=== PATIENT | female | born 1965 | race Hispanic/Latino ===

== ENCOUNTER 2020-10-19 07:05 | Day surgery (SDC) | payer MEDICAID ==
[2020-10-18 10:03] LABS: Hematocrit 40.2 % (30.3-42.9); Mean Corpuscular HGB Conc 35 % (30-34); Mean Corpuscular Volume 89 fl (79-97); Platelet Count 233 K/mm3 (140-440); Red Blood Count 4.51 M/mm3 (3.65-5.03); Red Cell Distribution Width 12.6 % (13.2-15.2)
[2020-10-18 10:27] LABS: Alanine Aminotransferase 32 units/L (7-56); Albumin 4.7 g/dL (3.9-5); Blood Urea Nitrogen 21 mg/dL (7-17); Calcium 10.3 mg/dL (8.4-10.2); Hemolysis Index 12
[2020-10-18 10:37] LABS: BUN/Creatinine Ratio 30
[~2020-10-19 07:05] MED LIST: SODIUM CHLORIDE 0.9% IRR 1,500 ML BOTTLE IR ONE; SODIUM CHLORIDE 0.9% IRRIG SOLN 2000 ML IR ONE
[2020-10-19] MEDS ORDERED: MAGNESIUM OXIDE 400 MG TAB PO NR (08:07)
[2020-10-19] MEDS ORDERED: ACETAMINOPHEN 500 MG TAB PO NR (08:07)
[2020-10-19] MEDS ORDERED: ONDANSETRON 4 MG/2 ML INJ IV PRN (08:07)
[2020-10-19] MEDS ORDERED: HYDROmorphone 1 MG/1 ML INJ IV PRN ×2 (08:07)
--- NOTE | 2020-10-19 08:08 | Anesthesia Day of Surgery ---
Anesthesia Day of Surgery - Day of Surgery Patient Examined: Yes Patient H&P Reviewed: Yes Patient is NPO: Yes
--- NOTE | 2020-10-19 08:09 | Anesthesia Consultation ---
Anesthesia Consult and Med Hx Date of service: 10/19/20 - Airway Anesthetic Teeth Evaluation: Partials (Missing) ROM Head & Neck: Adequate Mental/Hyoid Distance: Adequate Mallampati Class: Class II Intubation Access Assessment: Good - Pre-Operative Health Status ASA Pre-Surgery Classification: ASA2 Proposed Anesthetic Plan: General - Pulmonary Hx Smoking: No Hx Asthma: Yes ( CHILD , NOW SEASONAL-LAST INHALER USE 1YR) Hx Sleep Apnea: No (VIBHA PRE SCREEN LOW RISK) - Cardiovascular System Hx Hypertension: No - Central Nervous System Hx Back Pain: Yes (NECK AND BACK PAIN) Hx Psychiatric Problems: Yes (Anxiety/Depression) - Gastrointestinal Hx Gastroesophageal Reflux Disease: Yes (Occasional-dietary) - Hematic Hx Anemia: No - Other Systems Hx Cancer: No
[2020-10-19] MEDS ORDERED: LACTATED RINGERS 1,000 ML IV SCH (08:30)
[2020-10-19] MEDS ORDERED: CELECOXIB 200 MG CAP PO NR (09:00)
[2020-10-19] MEDS ORDERED: MIDAZOLAM 2 MG/2 ML INJ IV NR (09:00)
[2020-10-19] MEDS ORDERED: NEOMY 40 MG/POLYMYXIN B 200,000 UNITS/ML (GU) AMPULE IR ONE ×2 (09:45→11:03)
[2020-10-19] MEDS ORDERED: SODIUM CHLORIDE 0.9% 250ML 250 ML ONE (09:48)
[2020-10-19] MEDS ORDERED: ONDANSETRON 4 MG/2 ML INJ ONE (09:51)
[2020-10-19] MEDS ORDERED: LIDOCAINE MPF (2%) 20 MG/1 ML VIAL 5 ML ONE (09:52)
[2020-10-19] MEDS ORDERED: HYDROmorphone 1 MG/1 ML INJ ONE (09:52)
[2020-10-19] MEDS ORDERED: propofoL 200 MG/20 ML VIAL IV ONE (09:52)
[2020-10-19] MEDS ORDERED: ceFAZolin/Water 2 GM/20 ML 2 GM/20 ML SYRINGE IV NR (10:14)
[2020-10-19] MEDS ORDERED: dexAMETHasone 20 MG/5 ML VIAL ONE (10:41)
[2020-10-19] MEDS ORDERED: VASOPRESSIN 20 UNIT/1 ML INJ IV ONE (10:59)
[2020-10-19] MEDS ORDERED: SODIUM CHLORIDE 0.9% IRR 1,500 ML BOTTLE IR ONE (10:59)
[2020-10-19] MEDS ORDERED: SODIUM CHLORIDE 0.9% IRRIG SOLN 2000 ML IR ONE (10:59)
[2020-10-19] MEDS ORDERED: SODIUM CHLORIDE 0.9% 250 ML IVPB IV ONE (11:03)
--- NOTE | 2020-10-19 11:46 | Short Stay Summary ---
Short Stay Documentation Date of service: 10/19/20 - History H&P: obtained from office - Allergies and Medications Current Medications: Allergies No Known Allergies Allergy (Verified 10/11/20 12:04) Home Medications Medication Instructions Recorded Confirmed Last Taken Type Albuterol Sulfate [Proventil Hfa] 2 puff IH PRN PRN 10/11/20 10/11/20 Unknown History Cyclobenzaprine [Flexeril] 10 mg PO BID 10/11/20 10/18/20 Unknown History Sertraline [Zoloft] 50 mg PO QDAY 10/11/20 10/18/20 Unknown History Diclofenac Submicronized 75 mg PO BID 10/18/20 10/18/20 Unknown History [Diclofenac] Fesoterodine Fumarate ER (Nf) 8 mg PO DAILY 10/18/20 10/18/20 Unknown History [Toviaz ER (Nf)] Ibuprofen [Motrin] 800 mg PO Q8HR PRN 10/18/20 10/18/20 Unknown History Loratadine [Allergy Relief] 10 mg PO DAILY 10/18/20 10/18/20 Unknown History Lovastatin [Altoprev] 20 mg PO DAILY 10/18/20 10/18/20 Unknown History Active Medications Hydromorphone HCl (Hydromorphone 1 Mg/1 Ml Inj) 0.25 mg IV Q10MIN PRN PRN Reason: Pain, Moderate (4-6) Stop: 10/19/20 23:00 Hydromorphone HCl (Hydromorphone 1 Mg/1 Ml Inj) 0.5 mg IV Q10MIN PRN PRN Reason: Pain , Severe (7-10) Stop: 10/19/20 23:00 Lactated Ringer's (Lactated Ringers) 1,000 mls @ 125 mls/hr IV DIRECT LELE Cefazolin Sodium (Ancef/Sterile Water 2 Gm/20 Ml) 2 gm in 20 mls @ 80 mls/hr IV PREOP NR; Protocol Stop: 10/19/20 14:00 Magnesium Oxide (Magnesium Oxide 400 Mg Tab) 400 mg PO ONCE NR Stop: 10/19/20 12:00 Midazolam HCl (Midazolam 2 Mg/2 Ml Inj) 2 mg IV PREOP NR Stop: 10/19/20 23:59 Ondansetron HCl (Ondansetron 4 Mg/2 Ml Inj) 4 mg IV ONCE PRN PRN Reason: Nausea And Vomiting Stop: 10/19/20 12:00 - Brief post op/procedure progress note Date of procedure: 10/19/20 Pre-op diagnosis: grey Post-op diagnosis: same Procedure: cysto pubovaginal sling Anesthesia: GETA Surgeon: DOMINIC OLMOS Pathology: none Condition: stable - Hospital course Hospital course: macrobid, ultram, norco on chart - Disposition Condition at discharge: Stable Disposition: 01 HOME / SELF CARE / HOMELESS Short Stay Discharge Plan Follow up with: PRIMARY CARE, [Primary Care Provider] - 7 Days
--- NOTE | 2020-10-19 12:22 | Operative Report ---
DATE OF SURGERY: 10/19/2020 PREOPERATIVE DIAGNOSIS: Stress urinary incontinence. POSTOPERATIVE DIAGNOSIS: Stress urinary incontinence. PROCEDURES: Cystoscopy, pubovaginal sling. SURGEON: Talib Cancino MD ANESTHESIA: General. ESTIMATED BLOOD LOSS: Minimal. FLUIDS: Crystalloid. COMPLICATIONS: No complications. INDICATIONS: This patient is a 54-year-old female with long history of voiding dysfunction. She states she has had some type of urethral dilatation as a kid. She has had a hysterectomy in the remote past, 2 kids vaginal. Urodynamic testing was consistent with urinary leakage. We have tried medication and biofeedback with some improvement in her symptoms. The patient states symptoms have gradually worsened with an overactive bladder symptom score of 22. At this point, she wants to proceed with a sling procedure. She understands I am going to use cadaveric fascia. DESCRIPTION OF PROCEDURE: The patient was taken to the operative suite, placed in a supine position. After adequate general anesthesia, placed in the dorsal lithotomy position, prepped and draped in a sterile fashion. Exam under anesthesia revealed a thin anterior vaginal wall. Dilute Pitressin was used to try to separate the bladder from the vaginal wall midline incision. A plastic [place] retractor was used for exposure. Midline incision was made with a knife. Gentle dissection on the lateral to establish lateral flaps were performed, noted to have small thinning of the bladder wall, continued to develop the lateral pedicles of the lateral flap using the TVT trocar, passed the trocar laterally onto the abdominal wall without difficulty. Cystoscopy, there was a small rent on the patient's right side. Therefore, I removed the TVT tape and will use cadaveric fascia only. A 2-0 Vicryl was placed as anterior as possible bilaterally. A 1 x 1 cm fascia was then placed on the anterior bladder wall intact with 2-0 Vicryl in interrupted fashion, was pushed anteriorly, secured with the 2-0 Vicryl creating a hammock. Copious irrigation was performed. Adequate hemostasis was achieved. Redundant anterior vaginal wall was excised. Vaginal wall was closed with a 2-0 Vicryl in a running fashion. Minimal bleeding was noted. Mojica catheter was left indwelling. She was extubated and taken to recovery room. She will go home with a Mojica catheter for at least 7 days and Bactrim, Galt and Ultram. TID: [id number] RECEIPT: [id number] VERONICA/ROCIO
--- NOTE | 2020-10-19 14:19 | Post Anesthesia Evaluation ---
- Post Anesthesia Evaluation Patient Participated: Yes Airway Patent: Yes Stable Respiratory Function: Yes Nausea/Vomiting: No Temp > 96.8F: Yes Pain Manageable: Yes Adequeate Hydration: Yes Anesthesia Complications: No Block Receding Appropriately: Not Applicable Patient on Ventilator: No
[2020-10-19 18:19] VITALS: BP 112/58
== END 2020-10-19 15:30 | disposition home or self-care (01) ==
LOC: OR 07:05
PROVIDERS: ATTEND Urology
DX: N39.46 Mixed incontinence (principal); J45.909 Unspecified asthma, uncomplicated; E78.00 Pure hypercholesterolemia, unspecified; K21.9 Gastro-esophageal reflux disease without esophagitis; F41.9 Anxiety disorder, unspecified; F32.9 Major depressive disorder, single episode, unspecified; Z79.899 Other long term (current) drug therapy; Z98.890 Other specified postprocedural states
CPT/HCPCS: 36415; 57288; 80053; 85027; A4217; C1762; C1771; J0690; J1100; J1170; J2250; J2405; J2704; J7050; J7120